=== PATIENT | male | born 1945 | race Caucasian/White ===

== ENCOUNTER → 2018-04-27 | Outpatient (CLI) | payer MEDICARE, OTHER ==
[~2018-04-27] MED LIST: OMNIPAQUE 350 MG/ML, 100ML BOTTLE ONE
[2018-04-27 13:04] LABS: CREATININE 0.89 mg/dL (0.7-1.3)
== END | disposition home or self-care (01) ==
LOC: RAD 12:27
PROVIDERS: ATTEND Internal Medicine
DX: M43.17 Spondylolisthesis, lumbosacral region (principal); R10.12 Left upper quadrant pain
CPT/HCPCS: 36415; 74177; 82565; Q9967

== ENCOUNTER → 2018-06-03 | Outpatient (CLI) | payer MEDICARE, OTHER | END | disposition home or self-care (01) | LOC: CFH 12:47 | PROVIDERS: ATTEND Internal Medicine Cardiovascular Disease | DX: I49.3 Ventricular premature depolarization (principal); Z82.49 Family history of ischemic heart disease and other diseases of the circulatory system | CPT/HCPCS: 78452; 93017; A9502 ==

== ENCOUNTER 2018-08-12 09:38 | Day surgery (SDC) | payer MEDICARE, OTHER ==
[2018-08-11 08:11] VITALS: BP 129/88
[2018-08-11 08:49] LABS: MICROSCOPIC NOT IND
[2018-08-11 08:55] LABS: ALANINE AMINOTRANSFERASE 40 U/L (12-78); ALBUMIN 3.6 g/dL (3.4-5.0); ANION GAP 6 mmol/L (5-15); CALCIUM 8.7 mg/dL (8.5-10.1); CHLORIDE 109 mmol/L (98-107)
[2018-08-11 08:58] LABS: ALKALINE PHOSPHATASE 68 U/L (45-117); BILIRUBIN,TOTAL 1.1 mg/dL (0.2-1.0); CREATININE 0.91 mg/dL (0.7-1.3); TOTAL PROTEIN 6.8 g/dL (6.4-8.2)
[2018-08-11 09:29] LABS: MEAN CORPUSCULAR HEMOGLOBIN 30.8 pg (27.5-34.5); MEAN CORPUSCULAR HGB CONC 34.5 g/dL (33.2-36.2); MEAN CORPUSCULAR VOLUME 89.3 fL (81-97); PLATELET COUNT 214 x10^3/uL (130-400); RED BLOOD COUNT 5.12 x10^6/uL (4.38-5.82); RED CELL DISTRIBUTION WIDTH 13.8 % (9.4-14.8)
[2018-08-11 09:56] LABS: MD YES
[2018-08-11 11:32] LABS: BAND#(MANUAL) 0.13 x10^3/uL; BANDS%(MANUAL) 2 % (0-7); LYMPH#(MANUAL) 1.06 x10^3/uL (1-3.4); LYMPHS% (MANUAL) 16 % (22-44); SEG#(MANUAL) 5.41 x10^3/uL (1.8-6.8); SEGS% (MANUAL) 82 % (42-75)
[2018-08-11 11:33] LABS: <PLATELET ESTIMATE> ADEQUATE; <PLT MORPHOLOGY> NORMAL PLT MORPH; <RBC MORPHOLOGY> NORMAL
[~2018-08-12] VITALS: Ht 170.2 cm; Wt 74.2 kg
[~2018-08-12 09:38] MED LIST changes: +DUTA1CPM4 PO; -OMNIPAQUE 350 MG/ML, 100ML BOTTLE ONE; +ROSU10TA PO
[2018-08-12] MEDS ORDERED: LIDOCAINE-MPF 1%, 2ML INFIL ONE (10:00)
[2018-08-12] MEDS ORDERED: LACTATED RINGERS 1,000 ML IV SCH (10:30)
[2018-08-12] MEDS ORDERED: MIDAZOLAM 1 MG/ML, 2ML ONE (11:27)
[2018-08-12] MEDS ORDERED: FENTANYL PF 250 MCG/5ML ONE (11:27)
[2018-08-12] MEDS ORDERED: WATER-INJECTION,STERILE 10 ML IV ONE (11:28)
[2018-08-12] MEDS ORDERED: PROPOFOL 10 MG/ML, 20ML ONE (11:28)
[2018-08-12] MEDS ORDERED: CEFAZOLIN 1,000 MG ONE ×2 (11:28)
[2018-08-12] MEDS ORDERED: LABETALOL 5MG/ML, 20ML IV PRN (12:00)
[2018-08-12] MEDS ORDERED: PROMETHAZINE 25 MG/ML, 1ML IV PRN (12:00)
[2018-08-12] MEDS ORDERED: FENTANYL PF 100 MCG/2ML IV PRN (12:00)
[2018-08-12] MEDS ORDERED: MORPHINE SULFATE 4 MG/ML, 1ML IVPush PRN (12:00)
[2018-08-12] MEDS ORDERED: PROMETHAZINE 25 MG SUPP PR PRN (12:00)
[2018-08-12] MEDS ORDERED: OXYcodone 5 MG/5 ML ORAL.SOL UDC PO PRN (12:00)
[2018-08-12] MEDS ORDERED: HYDROmorphone 1 MG/ML, 1ML IV PRN (12:00)
[2018-08-12] MEDS ORDERED: MEPERIDINE/PF 25MG/0.5ML IVPush PRN (12:00)
[2018-08-12] MEDS ORDERED: ACETAMINOPHEN 325 MG TABLET PO PRN (12:00)
[2018-08-12] MEDS ORDERED: ONDANSETRON 2MG/ML, 2ML IV PRN (12:00)
[2018-08-12] MEDS ORDERED: ONDANSETRON ODT 8 MG PO PRN (12:00)
[2018-08-12] MEDS ORDERED: PROMETHAZINE 12.5 MG SUPP PR PRN (12:00)
[2018-08-12] MEDS ORDERED: hydrALAzine 20 MG/ML, 1ML IV PRN (12:00)
[2018-08-12] MEDS ORDERED: PROMETHAZINE 25 MG/ML, 1ML IM PRN ×2 (12:00)
[2018-08-12] MEDS ORDERED: TRIAMCINOLONE ACETONIDE 40 MG/ML, 1ML ONE (12:02)
[2018-08-12] MEDS ORDERED: OXYcodone 5 MG/5 ML ORAL.SOL UDC ONE (12:40)
[2018-08-12] MEDS ORDERED: FENTANYL PF 100 MCG/2ML ONE (12:40)
== END 2018-08-12 15:05 | disposition home or self-care (01) ==
LOC: OUT 09:38
PROVIDERS: ATTEND Urology
DX: N35.9 Urethral stricture, unspecified (principal); N40.0 Benign prostatic hyperplasia without lower urinary tract symptoms; N32.89 Other specified disorders of bladder; E78.5 Hyperlipidemia, unspecified; Z72.89 Other problems related to lifestyle; Z88.0 Allergy status to penicillin
CPT/HCPCS: 36415; 52276; 80053; 81003; 85025; 87086; 93005; C1769; J0690; J2250; J2704; J3010; J3301; J3490; J7120

== ENCOUNTER 2020-05-03 07:11 | Outpatient (CLI) | payer MEDICARE, OTHER ==
[~2020-05-03 07:11] MED LIST changes: -ROSU10TA PO; +ROSU10TA2 PO
== END 2020-05-03 23:59 | disposition home or self-care (01) ==
LOC: CFH 07:11
PROVIDERS: ATTEND Family Medicine
DX: R10.12 Left upper quadrant pain (principal); R10.9 Unspecified abdominal pain
CPT/HCPCS: 76700

== ENCOUNTER 2020-06-07 11:54 | Outpatient (CLI) | payer MEDICARE, OTHER ==
[2020-06-07] MEDS ORDERED: OMNIPAQUE 350 MG/ML, 100ML BOTTLE ONE (13:47)
== END 2020-06-07 23:59 | disposition home or self-care (01) ==
LOC: RAD 11:54
PROVIDERS: ATTEND Nurse Practitioner
DX: K62.5 Hemorrhage of anus and rectum (principal); R10.11 Right upper quadrant pain; R10.30 Lower abdominal pain, unspecified; M43.17 Spondylolisthesis, lumbosacral region; M51.37 Other intervertebral disc degeneration, lumbosacral region
CPT/HCPCS: 74178; Q9967